=== PATIENT | female | born 1965 | race Caucasian/White ===

== ENCOUNTER 2016-09-27 12:19 | Emergency (ER) | payer SELFPAY ==
[2016-09-27 12:38] VITALS: BP 190/99
[2016-09-27] MEDS ORDERED: DOCUSATE SODIUM 100 MG CAPSULE RT_EAR ONE (15:08)
--- NOTE | 2016-09-27 15:41 | ER Document Report ---
HPI - HPI Patient complains to provider of: right ear pain Pain Level: 3 Context: 51 yo female c/o right ear pressure, ringing in ear, decreased hearing x 1 week Associated Symptoms: None Exacerbated by: Denies Relieved by: Denies Similar symptoms previously: No Recently seen / treated by doctor: No - ROS Systems Reviewed and Negative: Yes All other systems reviewed and negative - DERM Skin Color: Normal Past Medical History - General Information source: Patient - Social History Smoking Status: Current Every Day Smoker Frequency of alcohol use: None Drug Abuse: None Lives with: Alone Family History: Reviewed & Not Pertinent Patient has suicidal ideation: No Patient has homicidal ideation: No - Medical History Medical History: Negative Renal/ Medical History: Denies: Hx Peritoneal Dialysis Vertical Provider Document - CONSTITUTIONAL Agree With Documented VS: Yes Exam Limitations: No Limitations General Appearance: WD/WN - INFECTION CONTROL TRAVEL OUTSIDE OF THE [place] IN LAST 30 DAYS: No - HEENT HEENT: Atraumatic, PERRLA Notes: + cerumen impaction right EAC - NECK Neck: Normal Inspection, Supple - RESPIRATORY Respiratory: Breath Sounds Normal, No Respiratory Distress O2 Sat by Pulse Oximetry: 96 - CARDIOVASCULAR Cardiovascular: Regular Rate, Regular Rhythm - NEURO Level of Consciousness: Awake, Alert, Appropriate Course - Re-evaluation Re-evalutation: 09/27/16 16:28 good results with ear irrigation. pt reports relief from pressure 09/27/16 16:30 BP noted to be elevated. pt is asymptomatic - Vital Signs Vital signs: Temp Pulse Resp BP Pulse Ox 98.8 F 75 16 190/99 H 96 09/27/16 12:36 09/27/16 12:36 09/27/16 12:36 09/27/16 12:36 09/27/16 12:36 Discharge - Discharge Clinical Impression: Cerumen impaction Qualifiers: Laterality: right Qualified Code(s): H61.21 - Impacted cerumen, right ear Condition: Stable Disposition: HOME, SELF-CARE Instructions: Cerumen Impaction ([facility]) Additional Instructions: may use OTC ear irrigation as needed your blood pressure is elevated today please keep blood pressure diary if readings remain greater than 130/90, you need treatment establish with primary care SHAQUILLE for further evaluation Forms: Elevated Blood Pressure
== END 2016-09-27 16:53 | disposition home or self-care (01) ==
LOC: ER 12:19
DX: H61.21 Impacted cerumen, right ear (principal); H92.01 Otalgia, right ear; F17.200 Nicotine dependence, unspecified, uncomplicated
CPT/HCPCS: 99282